=== PATIENT | female | born 1955 | race Asian ===

== ENCOUNTER → 2018-01-09 | Outpatient (CLI) | payer BC ==
--- NOTE | 2018-01-09 11:20 | ECHOS ---
STRESS ECHOCARDIOGRAM INDICATIONS: Chest pain. MEDICATIONS: Fish oil. BASELINE HEART RATE: 60 BASELINE BLOOD PRESSURE: 130/63 MAXIMUM HEART RATE: 128 MAXIMUM BLOOD PRESSURE: 208/64 85% MPHR: 136 100% MPHR: 160 METS: 10.5 MAXIMUM STAGE REACHED: III TOTAL EXERCISE TIME: 9:01 CLINICAL INFORMATION: Baseline EKG revealed normal sinus rhythm without significant ST-T changes. Patient walked on a standard Ramón protocol for 9 minutes, achieved a maximal heart rate of 128 beats per minute which is less than 85% of predicted maximal. She developed fatigue and shortness of breath but did not have any angina or arrhythmia. EKG did not reveal any ST-segment changes to indicate ischemia. This is an inconclusive stress test by EKG criteria because of inadequate chronotropic response. The patient, however, did not have any symptoms. Baseline echo images revealed normal wall motion and wall thickening of all segments. At peak exercise, she had a heart rate of 128 beats per minute. There was no evidence of ischemia on the basis of stress echocardiogram. There was good augmentation of wall motion and wall thickening of all segments suggesting that there is no evidence of stress-induced ischemia, but patient; however, did not achieve 85% of predicted maximal heart rate. IMPRESSION: 1. Inconclusive stress test by EKG criteria because of inadequate chronotropic response. 2. Inconclusive stress echocardiogram but at the above-mentioned stress level, there is no evidence of ischemia. MMODL / IJN: [id number] /
== END | disposition home or self-care (01) ==
LOC: RADNMMAIN 09:29
PROVIDERS: ATTEND Family Medicine
DX: R07.9 Chest pain, unspecified (principal)
CPT/HCPCS: 93017; 93350